=== PATIENT | female | born 1975 | race American Indian/Alaskan Native ===

== ENCOUNTER 2017-11-23 16:24 | Emergency (ER) | payer OTHER ==
[2017-11-23] MEDS ORDERED: NORMODYNE IV ONE (17:03)
[2017-11-23] MEDS ORDERED: ZOFRAN IV ONE (17:06)
[2017-11-23] MEDS ORDERED: APRESOLINE IV ONE (17:57)
--- NOTE | 2017-11-23 18:45 | Emergency Department Report ---
HPI - General Chief Complaint: High BP Time Seen by Provider: 11/23/17 17:02 - HPI HPI: The patient is a 42-year-old female , reported EGA 8 weeks, with a significant history of hypertension, who presents for evaluation of dizziness and elevated blood pressure. The patient states that she was instructed to present to the emergency department by her primary care physician at the main found to have elevated blood pressure yesterday. The patient also reports 1 day of mild intermittent dizziness with position changes, improved with lying flat at rest, and associated with nausea and episodes of nonbilious, nonbloody emesis. The patient was reports receiving a ultrasound confirming IUP recently. The patient denies fever, chills, night sweats, abdominal pain, diarrhea, blood in the stool, dark tarry stool, dysuria, hematuria, flank pain, genital discharge, vaginal bleeding, inability to pass flatus. ED Past Medical Hx - Past Medical History Hx Hypertension: Yes - Social History Smoking Status: Current Every Day Smoker Substance Use Type: None - Medications Home Medications: Home Medications Medication Instructions Recorded Confirmed Last Taken Type Clotrimazole [Clotrimazole 3] 21 gm VG HS #1 cream.appl 04/30/13 Unknown Rx Labetalol [Normodyne TAB] 100 mg PO BID #30 tablet 11/23/17 Unknown Rx Ondansetron [Zofran TAB] 4 mg PO Q8HR PRN #20 tablet 11/23/17 Unknown Rx ED Review of Systems ROS: Stated complaint: HYPOTENSION Other details as noted in HPI Constitutional: reports dizziness denies: fever ENT: denies: throat or neck pain Respiratory: denies: cough, shortness of breath Cardiovascular: denies: chest pain Endocrine: denies unexplained weight loss or gain Gastrointestinal: denies abdominal pain, reports: nausea Genitourinary: denies: dysuria Musculoskeletal: denies: leg swelling Skin: denies: rash Neurological: denies: headache Hematological/Lymphatic: denies: easy bleeding or easy bruising Psych: denies sadness or hopelessness Physical Exam - Physical Exam Vital Signs: Vital Signs 11/23/17 11/23/17 11/23/17 16:29 17:45 17:46 Temperature 98.2 F Pulse Rate 135 H 99 H Respiratory 18 Rate Blood Pressure 147/110 144/114 144/113 O2 Sat by Pulse 98 99 Oximetry 11/23/17 18:01 Temperature Pulse Rate Respiratory 16 Rate Blood Pressure O2 Sat by Pulse 100 Oximetry Physical Exam: General: well-nourished, well-developed, no acute distress Head: Normocephalic, atraumatic Eyes: normal sclera ENT: Mucous membranes are pale and dry Neck: No neck stiffness, no cervical adenopathy Respiratory: Breath sounds equal bilaterally, no wheezing, rales, or rhonchi Cardio: S1 and S2 present, no murmurs, rubs, gallops, capillary refill is delayed Abdomen: Normoactive bowel sounds, soft abdomen, no rigidity, no guarding or rebound tenderness Chest WALL/Back: No tenderness to palpation of the chest wall, no CVA tenderness with percussion Musc: No pitting edema Skin: No rash Neuro: no facial drooping, normal speech Psych: Normal affect ED Course Vital Signs 11/23/17 11/23/17 11/23/17 16:29 17:45 17:46 Temperature 98.2 F Pulse Rate 135 H 99 H Respiratory 18 Rate Blood Pressure 147/110 144/114 144/113 O2 Sat by Pulse 98 99 Oximetry 11/23/17 18:01 Temperature Pulse Rate Respiratory 16 Rate Blood Pressure O2 Sat by Pulse 100 Oximetry ED Medical Decision Making - Medical Decision Making The patient was seen and examined by myself. The patient is placed on a bus driver/monitor and continuous pulse ox. On initial evaluation, the patient was found to be in no distress. Evaluation orders are placed. IV access is established and the patient is given Zofran for nausea, and IV hydralazine for her elevated blood pressure. Lab results revealed elevated hCG of 100,000 and contaminated urinalysis. EKG is negative for arrhythmia or ST segment changes concerning for acute cardiac disease process. On reexamination the patient's blood pressure was found to decrease outside of range concerning for hypertensive emergency. The patient is stable for discharge with outpatient follow-up. The patient is given follow-up and return instructions. The patient expressed understanding and agreed with the plan. The patient is discharged in stable condition. Critical care attestation.: If time is entered above; I have spent that time in minutes in the direct care of this critically ill patient, excluding procedure time. ED Disposition Clinical Impression: Hypertensive urgency, Chronic hypertension during , Orthostatic dizziness, Dehydration Disposition: TO HOME OR SELFCARE Is pt being admited?: No Does the pt Need Aspirin: No Condition: Stable Instructions: Hypertension (ED) Prescriptions: Labetalol [Normodyne TAB] 100 mg PO BID #30 tablet Ondansetron [Zofran TAB] 4 mg PO Q8HR PRN #20 tablet PRN Reason: Nausea Referrals: VIN HWANG MD [Staff Physician] - 3-5 Days Time of Disposition: 20:20
[2017-11-23 19:37] LABS: Bacteria,Urine 2+ /HPF (Negative); Bilirubin,Urine NEG (Negative); Blood,Urine NEG (Negative); Color,Urine Amber (Yellow); Hyaline Casts,Urine 24 /LPF; Mucus,Urine 3+ /HPF
[2017-11-23 21:38] VITALS: BP 116/77
== END 2017-11-23 21:34 | disposition home or self-care (01) ==
LOC: ED 16:24
DX: O16.1 Unspecified maternal hypertension, first trimester (principal); I16.0 Hypertensive urgency; R42 Dizziness and giddiness; E86.0 Dehydration; F17.200 Nicotine dependence, unspecified, uncomplicated; Z3A.08 8 weeks gestation of pregnancy; O99.281 Endocrine, nutritional and metabolic diseases complicating pregnancy, first trimester; O99.331 Smoking (tobacco) complicating pregnancy, first trimester
CPT/HCPCS: 36415; 81001; 84702; 93005; 93010; 96374; 96375; 99284; J2405